=== PATIENT | male | born 1980 | race African-American/Black ===

== ENCOUNTER 2023-06-16 12:47 | Emergency (ER) | payer OTHER ==
--- OUTSIDE RECORDS SUMMARY | 2023-06-16 12:49 | XMS REPORT | Continuity of Care Document ---
:1980 Author Organization [facility] t Address [address] [place] [address] Care Team Providers Name Role Phone UNKNOWN, REFFERING Primary Care Physician Unavailable KRISTY ARIAS Attending Clinician Unavailable JERONIMO BOGGS Attending Clinician Unavailable RHIANNA WALTON Attending Clinician Unavailable RHIANNA WALTON Admitting Clinician Unavailable Payers Payer Name Policy Type Policy Number Effective Date Expiration Date S ource Problems This patient has no known problems. Allergies, Adverse Reactions, Alerts Allergy Allergy Status Severity Reaction(s) Onset Inactive Treating Comm ents Source Name Type Date Date Clinician No Known DA Active U 2020-0 [facility]- [facility] 00:00: [facility] 00 are [place] No Known DA Active U 2020-0 [facility] 3-10 [facility] 00:00: [facility] 00 are [place] Medications This patient has no known medications. Procedures This patient has no known procedures. Encounters Start End Encounter Admission Attending Care Care Encounter Source Date/Time Date/Time Type Type Clinicians Facility Department ID 2019-11-09 Inpatient [facility] MIKE [id number] [facility] 17:12:00 92 [facility] are [place] 2019-11-10 2019-11-10 Emergency E [place] ARIASNW [id number] [place] 17:50:00 20:10:00 KRISTY 2019-11-08 2019-11-09 Emergency E JOLENE BOGGS [facility] [id number] [facility] 22:01:00 01:15:00 JERONIMO 2019-09-12 2019-09-12 Emergency E JOLENE CANALESSW [id number] [facility] 20:09:00 20:09:00 2019-07-03 2019-07-03 Emergency E [facility] [id number] [facility] 16:57:00 16:57:00 2018-05-13 2018-05-13 Outpatient [facility] [id number] [place] 00:00:00 00:00:00 [facility] 2018-04-16 2018-04-16 Outpatient [facility] [id number] [place] 00:00:00 00:00:00 [facility] 2018-03-26 2018-03-26 Outpatient [facility] [id number] [place] 00:00:00 00:00:00 [facility] 2018-02-28 2018-02-28 Emergency [facility] [id number] [place] 07:33:00 07:33:00 [facility] 2018-02-24 2018-02-24 [facility] [id number] [facility] 09:06:31 09:06:31 2018-02-17 2018-02-17 Outpatient [facility] [id number] [place] 09:21:19 09:21:19 [facility] 2018-02-12 2018-02-12 [facility] [id number] [facility] 00:00:00 00:00:00 2018-02-11 2018-02-11 [facility] [id number] [facility] 10:42:33 10:42:33 2018-02-10 2018-02-10 [facility] [id number] [facility] 14:24:28 14:24:28 2018-02-10 2018-02-10 [facility] [id number] [facility] 08:54:00 08:54:00 2017-12-25 2017-12-25 Emergency E RHIANNA WALTON [facility] [id number] 08:24:00 08:24:00 [facility] Results Test Description Test Time Test Comments Results Result [facility] e Comments - XR CHEST 2 V 2019-11-09 Patient Name: 19:00:00 DEBO OSPINA Unit No: [id number] EXAMS: CPT CODE: [id number] XR CHEST 2 V 25008 PA AND LATERAL VIEWS OF THE CHEST LOCATION: R16 CLINICAL HISTORY: Pleurisy. COMPARISON: No previous exam available. FINDINGS: The cardiomediastinal shadow is within normal limits. The lungs are clear. No pleural fluids. No acute bony abnormality is found. IMPRESSION: Unremarkable radiographic study of the chest. at 1900 Reported and signed by: Mona Hayes MD CC: Estevan Choi MD Technologist: Ryann Matias; Stephanie Leal Time: DAP (Gy m2): Air Kerma (mGy): Trscr Dt/Tm: 11/09/2019 (1899) by:FabioL Electronic Signature Date/Time: 11/09/2019 (1899)Orig Print D/T: S: 11/09/2019 (1902) [facility] [place] [id number] : 1980 Age: 39 [place]: [place] [id number] Loc: MS.ERS Exam Date: 11/09/2019 Status: REG ER PH: FAX: PAGE 1 Signed Report XR Chest 2 Views 2018-01-04 Patient: GABRIELLE OSPINA 10:22:39 Date/Time01/04/2018 09:03 CDTReason for ExamCoughReportCHEST PA AND LATERAL:LOCATION: R 16HISTORY: Cough.COMPARISON: None.FINDINGS: The lungs are clear of acute infiltrate or mass. The heart is normal in size. The mediastinum is within normal limits. No pleural effusion or pneumothorax is present.IMPRESSION:1. No acute intrathoracic abnormality. Final Dictated by: MD Pedersen Sandra WDictated DT/TM: 01/04/2018 10:22 amSigned by: MD Pedersen Sandra WSigned (Electronic Signature): 01/04/2018 10:22 am POC Glucose, Blood 2017-12-25 09:18:00 Test Item Value Reference Range Interpretation Comme nts POC Glucose (test code = 96 mg/dL 70-115 N If you consider your patient critically POCGLUC) ill, the Shelley Accu-Chek InformII metershould not be used for Glucose determinations. Draw a venous Glucose and send to the Main Lab for Analysis.
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
[2023-06-16] MEDS ORDERED: HYDROCODONE/APAP 7.5/325 MG TAB ONE (13:58)
[2023-06-16 14:31] VITALS: TEMP 98
[2023-06-16 14:32] VITALS: BP 129/84; O2SAT 100
== END 2023-06-16 14:00 | disposition home or self-care (01) ==
LOC: ER 12:47
DX: M54.2 Cervicalgia (principal); R51.9 Headache, unspecified; V49.49XA Driver injured in collision with other motor vehicles in traffic accident, initial encounter; F17.210 Nicotine dependence, cigarettes, uncomplicated
CPT/HCPCS: 70450; 71250; 72125; 99283